=== PATIENT | male | born 1980 | race African-American/Black ===

== ENCOUNTER 2018-01-21 10:37 | Emergency (ER) | payer MEDICAID ==
[~2018-01-21] VITALS: Ht 182.9 cm; Wt 82.0 kg
[2018-01-21] MEDS ORDERED: DIAZEPAM 2 MG TABLET PO ONE (13:00)
[2018-01-21] MEDS ORDERED: KETOROLAC 60MG/2ML VIAL IM ONE (13:00)
[2018-01-21] MEDS ORDERED: DEXAMETHASONE 10 MG/ML VIAL IM ONE (13:00)
[2018-01-21 13:55] VITALS: BP 121/73
== END 2018-01-21 15:58 | disposition home or self-care (01) ==
LOC: ER 10:37
DX: M17.11 Unilateral primary osteoarthritis, right knee (principal); M92.51 Juvenile osteochondrosis of proximal tibia
CPT/HCPCS: 73560; 93971; 96372; 99284; J1100; J1885; L1830; Z7610